=== PATIENT | female | born 1935 | race Two or more races ===

== ENCOUNTER 2020-05-10 06:00 | Inpatient (IN) | payer OTHER, MEDICAID ==
[~2020-05-10] VITALS: Ht 152.4 cm; Wt 98.6 kg
[~2020-05-10 06:00] MED LIST: AMLO-496 PO; CLOP75TA70 PO; DOCU-94 PO; ERTU5TAB PO; FURO40TA4 PO; GLIP10TA9 PO; HYDR-4072 PO; MEMA1TAB5 PO; PANT40TA2 PO; POLY33504 PO; PRED10TA PO; ROSU10TA16 PO; SENN1TAB14 PO
[2020-05-10] MEDS ORDERED: IOHEXOL 300 MG/ML 100ML BOTTLE IJ ONE (06:52)
[2020-05-10] MEDS ORDERED: LIDOCAINE W/ EPINEPHRINE 2% INJ 20ML VIAL ONE (06:52)
[2020-05-10] MEDS: ceFAZolin 1GM/50ML 100 ML IV ONE ×2 (07:39→09:05)
[2020-05-10] MEDS ORDERED: fentaNYL CITRATE 100 MCG/2 ML VL ONE (07:40)
[2020-05-10] MEDS ORDERED: PHENYLEPHRINE HCL 10 MG/ML VL IV ONE (07:42)
[2020-05-10] MEDS ORDERED: MIDAZOLAM HCL 1MG/1ML-2 ML VIAL ONE (07:42)
[2020-05-10] MEDS ORDERED: PROPOFOL 10 MG/ML 20 ML IV ONE (07:42)
[2020-05-10] MEDS ORDERED: ONDANSETRON HCL 4 MG/2 ML VIAL IV PRN ×2 (10:30→17:45)
[2020-05-10] MEDS ORDERED: SUCCINYLCHOLINE CHLORIDE 20 MG/ML 10ML VIAL IV ONE (10:51)
[2020-05-10] MEDS ORDERED: NALOXONE HCL 0.4 MG/ML VIAL ONE (11:55)
[2020-05-10] MEDS ORDERED: MORPHINE SULF INJ 2 MG/ML SYRINGE 1ML IV PRN ×2 (16:45→17:45)
[2020-05-10] MEDS ORDERED: NITROGLYCERIN 0.4 MG SL TAB SL PRN ×2 (16:45→17:45)
[2020-05-10] MEDS ORDERED: DEXTROSE (50%) 50ML SYRG IV PRN (17:45)
[2020-05-10] MEDS ORDERED: LORazepam 2MG/ML-1ML VIAL IV PRN (17:45)
[2020-05-10] MEDS: SODIUM CHLORIDE 0.9% 1,000 ML IV SCH (18:00)
[2020-05-10] MEDS: InsuLIN REG 1unit/0.01ml Soln (100units/ml) SC SCH ×2 (18:00→23:51)
[2020-05-10] MEDS: ACCU-CHEK COMFORT CURVE STRIP VI SCH ×2 (18:00→23:52)
[2020-05-10] MEDS ORDERED: FUROSEMIDE 20 MG/2 ML VIAL ONE (18:14)
[2020-05-10 19:44] VITALS: BP 139/56
[2020-05-10] MEDS ORDERED: FURO20TA3 PO (20:26)
[2020-05-10] MEDS ORDERED: OMEP20TA PO (20:26)
[2020-05-10] MEDS ORDERED: ASPI-498 OR (20:26)
[2020-05-10] MEDS ORDERED: DILT-29 PO (20:26)
[2020-05-10] MEDS ORDERED: INFLUENZA QUAD 2020-2021 0.5 ML SYRG IM ONE (20:30)
[2020-05-10 22:00] VITALS: BP 138/62
[2020-05-10 22:18] LABS: Basophils # (auto) 0 10 ^3/uL (0-0.2); Basophils % (auto) 0.5 % (0.0-2.0); Eosinophils # (auto) 0 10 ^3/uL (0-0.8); Eosinophils % (auto) 0.2 % (0.0-7.0); Hematocrit 35.2 % (36.0-46.0); Hemoglobin 11.7 g/dL (12.2-16.2); Lymphocytes # (auto) 0.9 10 ^3/uL (0.4-5.4); Lymphocytes % (auto) 14.7 % (10.0-50.0); Mean Corpuscular Hemoglobin 28.7 pg (28.0-32.0); Mean Corpuscular Hgb Conc. 33.3 g/dL (32.0-36.0); Mean Corpuscular Volume 86.2 fL (80.0-100.0); Monocytes # (auto) 0.4 10 ^3/uL (0-1.3); Monocytes % (auto) 6.2 % (0.0-12.0); Neutrophils # (auto) 4.9 10 ^3/uL (1.6-8.6); Neutrophils % (auto) 78.4 % (37.0-80.0); Nucleated Red Blood Cells % 0.2 %; Platelet Count (auto) 208 10^3/uL (140-450); Red Blood Cells 4.09 10^6/uL (4.0-5.20); Red Cell Distribution Width 16.4 % (11.8-14.3); White Blood Cell 6.2 10^3/uL (4.4-10.8)
[2020-05-10 22:35] LABS: BUN/Creatinine Ratio 18.6; Potassium 3.3 mmol/L (3.5-5.1)
[2020-05-10 22:40] LABS: Bilirubin, Total 0.4 mg/dL (0.2-1.0); Total Protein 5.9 g/dL (6.4-8.2)
[2020-05-11 05:00] VITALS: BP 147/61
[2020-05-11] MEDS ORDERED: ACETAMINOPHEN 325 MG TAB PO PRN (05:30)
[2020-05-11] MEDS ORDERED: ACETAMINOPHEN 325 MG TAB PO ONE (05:30)
[2020-05-11] MEDS: HYDROcodone-ACET 5/325MG TAB PO PRN ×2 (05:43→23:30)
[2020-05-11] MEDS: InsuLIN REG 1unit/0.01ml Soln (100units/ml) SC SCH ×4 (06:00→22:45)
[2020-05-11] MEDS: ACCU-CHEK COMFORT CURVE STRIP VI SCH ×4 (06:41→22:45)
[2020-05-11 07:14] LABS: Basophils # (auto) 0 10 ^3/uL (0-0.2); Basophils % (auto) 0.8 % (0.0-2.0); Eosinophils # (auto) 0 10 ^3/uL (0-0.8); Eosinophils % (auto) 0.2 % (0.0-7.0); Hemoglobin 11.6 g/dL (12.2-16.2); Lymphocytes # (auto) 0.9 10 ^3/uL (0.4-5.4); Mean Corpuscular Hemoglobin 28.7 pg (28.0-32.0); Mean Corpuscular Volume 86.7 fL (80.0-100.0); Monocytes # (auto) 0.4 10 ^3/uL (0-1.3); Monocytes % (auto) 7.4 % (0.0-12.0); Neutrophils # (auto) 4.1 10 ^3/uL (1.6-8.6); Neutrophils % (auto) 75.6 % (37.0-80.0); Nucleated Red Blood Cells % 0.2 %; Platelet Count (auto) 193 10^3/uL (140-450); Red Blood Cells 4.03 10^6/uL (4.0-5.20); Red Cell Distribution Width 16.6 % (11.8-14.3); White Blood Cell 5.4 10^3/uL (4.4-10.8)
[2020-05-11 07:40] LABS: Potassium 3.3 mmol/L (3.5-5.1)
[2020-05-11 07:53] LABS: Albumin 3.1 g/dL (3.4-5.0); BUN/Creatinine Ratio 18.3; Bilirubin, Total 0.5 mg/dL (0.2-1.0); Calcium 9.3 mg/dL (8.5-10.1)
[2020-05-11 08:00] VITALS: BP 140/91
[2020-05-11 08:59] VITALS: BP 147/67
[2020-05-11] MEDS: PANTOPRAZOLE 40 MG/10 ML VIAL INJ IV SCH (09:56)
[2020-05-11] MEDS: ENOXAPARIN SOD 40 MG/0.4 ML SYRINGE SC SCH (09:56)
[2020-05-11] MEDS: SODIUM CHLORIDE 0.9% 1,000 ML IV SCH (10:40)
[2020-05-11] MEDS ORDERED: cefTRIAXone 1GM/50ML D5W 50 ML IV ONE (12:45)
[2020-05-11] MEDS ORDERED: VANCOMYCIN PER PHARMACY 0 MG IV SCH (12:45)
[2020-05-11 12:59] VITALS: BP 140/78
[2020-05-11] MEDS ORDERED: POTASSIUM EFFERVESENT TAB 25 MEQ PO ONE (13:00)
[2020-05-11 17:00] VITALS: BP 138/55
[2020-05-11] MEDS: VANCOMYCIN 1GM/250ML 250 ML IV SCH (17:19)
[2020-05-11 18:12] LABS: Urine Bacteria NONE SEEN /hpf (None Seen); Urine Blood 3+ /uL (Negative); Urine Hyaline Cast FEW /lpf (0 - 2); Urine Specific Gravity 1.018 (1.001-1.035); Urine WBC 10 /hpf (0 - 5)
[2020-05-11 22:00] VITALS: BP 145/69
[2020-05-11] MEDS: DOCUSATE SOD 100 MG CAP PO SCH (22:45)
[2020-05-12] MEDS: SODIUM CHLORIDE 0.9% 1,000 ML IV SCH ×2 (03:20→11:07)
[2020-05-12 05:00] VITALS: BP 159/65
[2020-05-12 06:41] LABS: Basophils # (auto) 0 10 ^3/uL (0-0.2); Basophils % (auto) 0.7 % (0.0-2.0); Eosinophils # (auto) 0.1 10 ^3/uL (0-0.8); Eosinophils % (auto) 1.8 % (0.0-7.0); Hematocrit 34.6 % (36.0-46.0); Hemoglobin 11.1 g/dL (12.2-16.2); Lymphocytes # (auto) 0.7 10 ^3/uL (0.4-5.4); Lymphocytes % (auto) 13.6 % (10.0-50.0); Mean Corpuscular Hemoglobin 28.1 pg (28.0-32.0); Mean Corpuscular Hgb Conc. 32.1 g/dL (32.0-36.0); Mean Corpuscular Volume 87.5 fL (80.0-100.0); Monocytes # (auto) 0.5 10 ^3/uL (0-1.3); Monocytes % (auto) 9.1 % (0.0-12.0); Neutrophils % (auto) 74.8 % (37.0-80.0); Nucleated Red Blood Cells % 0.1 %; Platelet Count (auto) 175 10^3/uL (140-450); Red Blood Cells 3.95 10^6/uL (4.0-5.20); Red Cell Distribution Width 16.4 % (11.8-14.3); White Blood Cell 5.4 10^3/uL (4.4-10.8)
[2020-05-12] MEDS: InsuLIN REG 1unit/0.01ml Soln (100units/ml) SC SCH ×4 (07:00→22:00)
[2020-05-12] MEDS: ACCU-CHEK COMFORT CURVE STRIP VI SCH ×4 (07:00→22:00)
[2020-05-12 07:08] LABS: Potassium 3.7 mmol/L (3.5-5.1)
[2020-05-12 07:16] LABS: Albumin 2.8 g/dL (3.4-5.0); Bilirubin, Total 0.4 mg/dL (0.2-1.0); Calcium 8.8 mg/dL (8.5-10.1); Total Protein 5.6 g/dL (6.4-8.2)
[2020-05-12 09:09] VITALS: BP 175/75
[2020-05-12] MEDS: cefTRIAXone 1GM/50ML D5W 50 ML IV SCH (11:08)
[2020-05-12] MEDS: DOCUSATE SOD 100 MG CAP PO SCH ×2 (11:08→22:00)
[2020-05-12] MEDS: HYDROcodone-ACET 5/325MG TAB PO PRN ×2 (11:08→17:54)
[2020-05-12] MEDS: PANTOPRAZOLE 40 MG/10 ML VIAL INJ IV SCH (11:09)
[2020-05-12] MEDS: ENOXAPARIN SOD 40 MG/0.4 ML SYRINGE SC SCH (11:09)
[2020-05-12 13:17] VITALS: BP 146/63
[2020-05-12 16:34] VITALS: BP 153/65
[2020-05-12] MEDS: VANCOMYCIN 1GM/250ML 250 ML IV SCH (17:50)
[2020-05-12 22:00] VITALS: BP 163/81
[2020-05-13] VITALS (7 sets, daily range): BP systolic 148–166; BP diastolic 68–83
[2020-05-13] MEDS: HYDROcodone-ACET 5/325MG TAB PO PRN ×5 (00:30→21:44)
[2020-05-13] MEDS ORDERED: FUROSEMIDE 20 MG/2 ML VIAL IV ONE ×2 (04:30→11:15)
[2020-05-13] MEDS: InsuLIN REG 1unit/0.01ml Soln (100units/ml) SC SCH ×4 (07:00→21:44)
[2020-05-13] MEDS: ACCU-CHEK COMFORT CURVE STRIP VI SCH ×4 (07:16→21:44)
[2020-05-13 10:37] LABS: Basophils # (auto) 0 10 ^3/uL (0-0.2); Eosinophils # (auto) 0.1 10 ^3/uL (0-0.8); Eosinophils % (auto) 3.1 % (0.0-7.0); Hemoglobin 10.7 g/dL (12.2-16.2); Lymphocytes # (auto) 0.7 10 ^3/uL (0.4-5.4); Lymphocytes % (auto) 16.1 % (10.0-50.0); Mean Corpuscular Hemoglobin 28.2 pg (28.0-32.0); Mean Corpuscular Hgb Conc. 32.5 g/dL (32.0-36.0); Mean Corpuscular Volume 86.8 fL (80.0-100.0); Monocytes # (auto) 0.3 10 ^3/uL (0-1.3); Monocytes % (auto) 6.6 % (0.0-12.0); Neutrophils % (auto) 73.2 % (37.0-80.0); Nucleated Red Blood Cells % 0.1 %; Platelet Count (auto) 168 10^3/uL (140-450); Red Cell Distribution Width 16.5 % (11.8-14.3); White Blood Cell 4.2 10^3/uL (4.4-10.8)
[2020-05-13] MEDS: ENOXAPARIN SOD 40 MG/0.4 ML SYRINGE SC SCH (10:48)
[2020-05-13] MEDS: PANTOPRAZOLE 40 MG/10 ML VIAL INJ IV SCH (10:48)
[2020-05-13] MEDS: DOCUSATE SOD 100 MG CAP PO SCH ×2 (10:48→21:43)
[2020-05-13] MEDS: cefTRIAXone 1GM/50ML D5W 50 ML IV SCH (10:49)
[2020-05-13 11:02] LABS: Alanine Aminotransferase 12 U/L (13-56); Albumin 2.6 g/dL (3.4-5.0); Alkaline Phosphatase 89 U/L (45-117); Aspartate Aminotransferase 7 U/L (15-37); BUN/Creatinine Ratio 20.5; Bilirubin, Total 0.4 mg/dL (0.2-1.0); Blood Urea Nitrogen 16 mg/dL (7-18); Calcium 8.8 mg/dL (8.5-10.1); GFR African American 90 mL/min; GFR Non-African American 75 mL/min; Total Protein 5.4 g/dL (6.4-8.2)
[2020-05-13 11:07] LABS: Glucose 107 mg/dL (74-106)
[2020-05-13 11:16] LABS: Anion Gap 6 (5-15); Carbon Dioxide 28 mmol/L (21-32); Chloride 108 mmol/L (98-107); Potassium 3.5 mmol/L (3.5-5.1); Sodium 142 mmol/L (136-145)
[2020-05-13] MEDS: SODIUM CHLORIDE 0.9% 1,000 ML IV SCH (12:40)
[2020-05-13] MEDS: VANCOMYCIN 1GM/250ML 250 ML IV SCH (16:43)
[2020-05-13] MEDS: hydrALAZINE HCL 20 MG/ML VL IV PRN (17:03)
[2020-05-14] MEDS: HYDROcodone-ACET 5/325MG TAB PO PRN ×3 (02:52→23:03)
[2020-05-14 04:51] VITALS: BP 149/64
[2020-05-14] MEDS: SODIUM CHLORIDE 0.9% 1,000 ML IV SCH ×2 (06:22→21:22)
[2020-05-14] MEDS: InsuLIN REG 1unit/0.01ml Soln (100units/ml) SC SCH ×4 (06:23→21:23)
[2020-05-14] MEDS: ACCU-CHEK COMFORT CURVE STRIP VI SCH ×4 (06:24→21:23)
[2020-05-14 07:50] VITALS: BP 185/65
[2020-05-14 08:23] LABS: Basophils # (auto) 0 10 ^3/uL (0-0.2); Basophils % (auto) 0.9 % (0.0-2.0); Eosinophils # (auto) 0.1 10 ^3/uL (0-0.8); Eosinophils % (auto) 2.2 % (0.0-7.0); Hematocrit 34.1 % (36.0-46.0); Hemoglobin 11.2 g/dL (12.2-16.2); Lymphocytes % (auto) 27.1 % (10.0-50.0); Mean Corpuscular Hemoglobin 28.5 pg (28.0-32.0); Mean Corpuscular Hgb Conc. 32.9 g/dL (32.0-36.0); Mean Corpuscular Volume 86.6 fL (80.0-100.0); Monocytes # (auto) 0.4 10 ^3/uL (0-1.3); Monocytes % (auto) 10.8 % (0.0-12.0); Neutrophils # (auto) 2.2 10 ^3/uL (1.6-8.6); Nucleated Red Blood Cells % 0.4 %; Platelet Count (auto) 172 10^3/uL (140-450); Red Blood Cells 3.94 10^6/uL (4.0-5.20); Red Cell Distribution Width 16.3 % (11.8-14.3); White Blood Cell 3.7 10^3/uL (4.4-10.8)
[2020-05-14 08:46] LABS: BUN/Creatinine Ratio 17.1; Calcium 9.4 mg/dL (8.5-10.1); Potassium 3.3 mmol/L (3.5-5.1)
[2020-05-14 09:00] VITALS: BP 185/65
[2020-05-14] MEDS: PANTOPRAZOLE 40 MG/10 ML VIAL INJ IV SCH (09:01)
[2020-05-14] MEDS: DOCUSATE SOD 100 MG CAP PO SCH ×2 (09:01→21:22)
[2020-05-14] MEDS: ENOXAPARIN SOD 40 MG/0.4 ML SYRINGE SC SCH (09:02)
[2020-05-14] MEDS: cefTRIAXone 1GM/50ML D5W 50 ML IV SCH (09:02)
[2020-05-14 13:00] VITALS: BP 150/75
[2020-05-14] MEDS ORDERED: POTASSIUM EFFERVESENT TAB 25 MEQ PO ONE (13:00)
[2020-05-14] MEDS: VANCOMYCIN 1GM/250ML 250 ML IV SCH (16:29)
[2020-05-14 17:00] VITALS: BP 165/99
[2020-05-14] MEDS: hydrALAZINE HCL 20 MG/ML VL IV PRN (21:45)
[2020-05-14 22:00] VITALS: BP 183/75
[2020-05-14] MEDS ORDERED: VANCOMYCIN 1GM/250ML 250 ML IV SCH (23:00)
[2020-05-15 05:00] VITALS: BP 161/64
[2020-05-15] MEDS: InsuLIN REG 1unit/0.01ml Soln (100units/ml) SC SCH ×2 (05:41→11:30)
[2020-05-15] MEDS: ACCU-CHEK COMFORT CURVE STRIP VI SCH ×2 (05:42→11:30)
[2020-05-15 07:01] LABS: Potassium 3.5 mmol/L (3.5-5.1)
[2020-05-15 07:07] LABS: BUN/Creatinine Ratio 14.4; Calcium 9.5 mg/dL (8.5-10.1)
[2020-05-15 07:30] VITALS: BP 155/60
[2020-05-15] MEDS: HYDROcodone-ACET 5/325MG TAB PO PRN (07:45)
[2020-05-15] MEDS: cefTRIAXone 1GM/50ML D5W 50 ML IV SCH (08:38)
[2020-05-15 09:29] VITALS: BP 155/60
[2020-05-15] MEDS: PANTOPRAZOLE 40 MG/10 ML VIAL INJ IV SCH (10:43)
[2020-05-15] MEDS: ENOXAPARIN SOD 40 MG/0.4 ML SYRINGE SC SCH (10:43)
[2020-05-15] MEDS: DOCUSATE SOD 100 MG CAP PO SCH (10:43)
[2020-05-15] MEDS: hydrALAZINE HCL 20 MG/ML VL IV PRN (12:44)
== END 2020-05-15 13:40 | disposition home health service (06) | DRG 515 ==
LOC: SUR 06:00 → WEST WING 19:44 → TELE-WESTW 20:50
PROVIDERS: ADMIT Anesthesiology Pain Medicine; ATTEND Internal Medicine
PROC: 0QS03ZZ Reposition Lumbar Vertebra, Percutaneous Approach (ICD-10-PCS; 2020-05-10)
PROC: 0QU03JZ Supplement Lumbar Vertebra with Synthetic Substitute, Percutaneous Approach (ICD-10-PCS; 2020-05-10)
PROC: 0QU03JZ Supplement Lumbar Vertebra with Synthetic Substitute, Percutaneous Approach (ICD-10-PCS; 2020-05-10)
PROC: 0QS03ZZ Reposition Lumbar Vertebra, Percutaneous Approach (ICD-10-PCS; principal; 2020-05-10 07:42)
DX: S32.040A Wedge compression fracture of fourth lumbar vertebra, initial encounter for closed fracture (principal); J69.0 Pneumonitis due to inhalation of food and vomit; J96.21 Acute and chronic respiratory failure with hypoxia; M80.88XA Other osteoporosis with current pathological fracture, vertebra(e), initial encounter for fracture; D68.69 Other thrombophilia; N17.9 Acute kidney failure, unspecified; J98.11 Atelectasis; I48.92 Unspecified atrial flutter; S32.050A Wedge compression fracture of fifth lumbar vertebra, initial encounter for closed fracture; Z20.822 Contact with and (suspected) exposure to COVID-19; N18.9 Chronic kidney disease, unspecified; G89.29 Other chronic pain; K21.9 Gastro-esophageal reflux disease without esophagitis; M19.90 Unspecified osteoarthritis, unspecified site; E78.5 Hyperlipidemia, unspecified; E87.6 Hypokalemia; D63.8 Anemia in other chronic diseases classified elsewhere; I48.91 Unspecified atrial fibrillation; G30.9 Alzheimer's disease, unspecified; E11.22 Type 2 diabetes mellitus with diabetic chronic kidney disease; F02.80 Dementia in other diseases classified elsewhere, unspecified severity, without behavioral disturbance, psychotic disturbance, mood disturbance, and anxiety; I12.9 Hypertensive chronic kidney disease with stage 1 through stage 4 chronic kidney disease, or unspecified chronic kidney disease; Z85.72 Personal history of non-Hodgkin lymphomas; Z95.0 Presence of cardiac pacemaker; Z79.899 Other long term (current) drug therapy
CPT/HCPCS: 36415; 36600; 71045; 72100; 76000; 78582; 80048; 80053; 80202; 81001; 82805; 82962; 83036; 83880; 84443; 84484; 85025; 85379; 87040; 87081; 93970; 97110; 97116; 97530; C9113; G0378; J0330; J0690; J0696; J1815; J2250; J2405; J2704